=== PATIENT | female | born 1995 | race Two or more races ===

== ENCOUNTER 2022-01-02 09:31 | Emergency (ER) | payer MEDICAID ==
[~2022-01-02] VITALS: Ht 160 cm; Wt 60.3 kg
[2022-01-02 09:49] LABS: MEAN CORPUSCULAR HEMOGLOBIN 34.8 uug (24.7-32.8); MEAN CORPUSCULAR VOLUME 100.4 fL (75.5-95.3); PLATELET COUNT (AUTO) 218 K/uL (179-408)
[2022-01-02 10:04] LABS: BILIRUBIN,DIRECT 0.1 mg/dL (0.0-0.2); BILIRUBIN,TOTAL 0.8 mg/dL (0.2-1.0); CREATININE 0.8 mg/dL (0.6-1.3); POTASSIUM 4.6 mmol/L (3.5-5.1); TOTAL PROTEIN, SERUM 7.4 g/dL (6.4-8.2)
--- NOTE | 2022-01-02 10:05 | NUR ---
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 Pt stated that she had emergency services provided by [facility] on 12/30/21 prior to coming here at [facility]. Pt stated that she had taken 2 Ibuprofen last night d/t pain, also stated that it is hard for her to bend. No Pain or burning sensation during urination, she has nausea but no episode of vomiting. Dr David in room for [facility].
[2022-01-02 10:10] LABS: *BILIRUBIN,URIN NEGATIVE (NEGATIVE); *BLOOD, URINE NEGATIVE (NEGATIVE); *CLARITY,URINE CLEAR (CLEAR); *COLOR,URINE YELLOW (YELLOW); *KETONES,URINE NEGATIVE (NEGATIVE); LEUKOCYTE ESTERASE ,URINE NEGATIVE (NEGATIVE); NITRITE, URINE NEGATIVE (NEGATIVE); UGLUCOSE NEGATIVE (NEGATIVE)
[2022-01-02 10:12] LABS: *URINE HCG, QUAL NEGATIVE (NEGATIVE)
[2022-01-02 10:28] LABS: BACTERIA,URINE FEW /HPF (NONE SEEN); RBC,URINE NONE SEEN /HPF (0-3); WBC,URINE 0-3 /HPF (0-3)
[2022-01-02 10:29] LABS: SQUAMOUS EPITHELIAL CELL,UR FEW /HPF (NONE SEEN); URINE AMORPHOUS URATE MODERATE /HPF
[2022-01-02] MEDS: IV NORMAL SALINE 1000 ML BAG IV ONE (10:45)
--- NOTE | 2022-01-02 10:48 | NUR ---
Pt consented to CT Abdominal/Pelvis with contrast. Placed the consent form in the pt's chart.
--- NOTE | 2022-01-02 10:49 | NUR ---
Saline lock placed at the L AC.
[2022-01-02] MEDS ORDERED: MORPHINE SULFATE 4 MG/1 ML DISP.SYRIN ONE (10:52)
[2022-01-02] MEDS ORDERED: ONDANSETRON 4 MG/2 ML VIAL ONE (10:52)
[2022-01-02] MEDS: MORPHINE SULFATE 4 MG/1 ML DISP.SYRIN IV ONE (11:02)
[2022-01-02] MEDS ORDERED: IOHEXOL 300MG/ML 100 ML INFUS..BTL ONE (11:05)
[2022-01-02] MEDS ORDERED: SWABABLE VALVE TRANSFER SET EA MC ONE (11:05)
[2022-01-02] MEDS ORDERED: IV NORMAL SALINE 250 ML IV ONE (11:05)
[2022-01-02] MEDS: ONDANSETRON 4 MG/2 ML VIAL IV ONE (11:10)
[2022-01-02] MEDS ORDERED: ONDA4TAB5 PO (11:22)
[2022-01-02] MEDS ORDERED: IBUP-1955 PO (11:22)
--- NOTE | 2022-01-02 11:38 | NUR ---
Pt back from CT from 1131. Denies pain, n/v.
--- NOTE | 2022-01-02 12:30 | NUR ---
Pt discharged to home in stable condition. Pt denies pain, n/v. Written and verbal after care instructions given. Pt verbalizes understanding of instructions. Stressed follow up or return to ER for worsening s/s.
[2022-01-02 12:36] VITALS: BP 130/75
== END 2022-01-02 12:30 | disposition home or self-care (01) ==
LOC: ER 09:31
DX: R11.0 Nausea (principal); K57.90 Diverticulosis of intestine, part unspecified, without perforation or abscess without bleeding; R10.31 Right lower quadrant pain; Z87.440 Personal history of urinary (tract) infections
CPT/HCPCS: 99285; 74177; 76856; 96361; 80076; 80048; 81001; 84703; 83690; 85025; 36415; 96374; Q9967; J2270; J7040; A4663; J2405